=== PATIENT | male | born 1990 | race Caucasian/White ===

== ENCOUNTER 2017-11-15 12:44 | Outpatient (CLI) | payer BC ==
[2017-11-15 13:29] LABS: #Basophils 0.1 thou/uL (0.0-0.2); #Eosinphils 0.2 thou/uL (0.0-0.7); #Lymphocytes 2.1 thou/uL (1.20-3.40); #Monocytes 0.9 thou/uL (0.11-0.59); #Neutrophils 5.7 thou/uL (1.40-6.50); %Basophils 0.9 % (0.0-1.0); %Eosinophils 2.2 % (0.0-10.0); %Lymphocytes 23.3 % (21.0-51.0); %Monocytes 9.6 % (0.0-10.0); Hematocrit 47.2 % (42.0-52.0); Mean Platelet Volume 9.2 fL (7.4-10.4); Red Blood Cell (RBC) Count 5.39 mill/uL (4.70-6.10)
[2017-11-15 13:55] LABS: Anion Gap 9 mmol/L (10-20); BUN (Urea Nitrogen) 25 mg/dL (8.9-20.6); Calc. Creatinine Clearance 0 mL/min (70-130); Calcium 9.9 mg/dL (7.8-10.44); Carbon Dioxide 32 mmol/L (22-29); Chloride 102 mmol/L (98-107); Estimated GFR-MDRD 74
== END 2017-11-15 12:45 | disposition home or self-care (01) ==
LOC: LABBT 12:44
PROVIDERS: ATTEND Specialist
DX: Z01.812 Encounter for preprocedural laboratory examination (principal); K40.90 Unilateral inguinal hernia, without obstruction or gangrene, not specified as recurrent
CPT/HCPCS: 80048; 85025

== ENCOUNTER 2017-11-18 07:09 | Day surgery (SDC) | payer BC ==
--- NOTE | 2017-11-14 16:16 | HP ---
DATE OF : 1990 HISTORY OF PRESENT ILLNESS: Dwayne Moreno is a 27-year-old male patient, , has a right ingui nal hernia that is bothersome to him. Dr. Ibanez has referred him for repair. The patient has notic ed this for several months and it has been bothersome to him in the past as he works out lifting [employer]. He has recently completed a half marathon, it did not seem to bother him. The patient desires repair. Plan is to repair this using mesh. He understands the risks of infection, bleeding, reopera tion, and recurrence of hernia, chronic pain syndrome, etc. and consents. ALLERGIES: None. TOBACCO: None. ALCOHOL: None. MEDICATIONS: None. PAST MEDICAL AND SURGICAL HISTORY: [place] teeth extraction. PHYSICAL EXAMINATION: VITAL SIGNS: Weight 170 pounds, 69 inches, 131/67, 56, 98.4 degrees. HEENT: Unremarkable. LUNGS: Clear to auscultation. CARDIAC: Regular rate and rhythm without murmur or gallop. ABDOMEN: Soft, nontender. EXTREMITIES: Left great toe paronychia one-third of the nail bed. No purulent discharge. : Testicles normal. Left groin without hernia. Right inguinal hernia present on standing and Bri herbie enlarges. ASSESSMENT AND PLAN: 1. Right inguinal hernia. Plan mesh repair. Risks and benefits as outlined above discussed. He co nsents to the use of mesh. Questions answered. Plan outpatient repair. 2. Paronychia, left great toe. Plan oral antibiotic treatment and if this does not improve or certa inly if it worsens, he may need removal of half of his nail. This can be done under the same anesthe tic. Hopefully, antibiotics will be successful and this will not be necessary.
[2017-11-15 13:10] VITALS: BMI 23.6
[2017-11-18] MEDS ORDERED: CEFAZOLIN/Water 2 GM/20 ML SYRINGE ONE (07:43)
[2017-11-18] MEDS ORDERED: Ketorolac Tromethamine 30 MG/ML VIAL ONE (07:43)
[2017-11-18] MEDS ORDERED: Bupivacaine/Epinephrine 0.25% 30 ML VIAL ONE (08:02)
[2017-11-18] MEDS ORDERED: Lidocaine 2% w/Epinephrine 1:200K 20 ML VIAL ONE (08:02)
[2017-11-18] MEDS ORDERED: Fentanyl 250 MCG/5 ML VIAL ONE (08:19)
--- NOTE | 2017-11-18 09:53 | OP ---
DATE OF OPERATION: 11/18/2017 PREOPERATIVE DIAGNOSIS: Right inguinal hernia, indirect. POSTOPERATIVE DIAGNOSIS: Right inguinal hernia, indirect. PROCEDURE: PHS mesh repair of indirect right inguinal hernia. SURGEON: Dr. Terrence Guerin ANESTHESIA: General. Local 0.25% Marcaine with epinephrine, 30 mL, mixed was mixed with 1% Xylocain e with epinephrine, 30 mL. PROCEDURE IN DETAIL: The patient was taken to the operating room where under general anesthesia, abd omen was prepared with ChloraPrep, draped in routine fashion. Ioban was used. Local anesthetic infi ltrated into skin and subcutaneous tissue for around the operative site. Incision made in the right groin and carried down through the skin and subcutaneous tissue. External oblique incised in the dir ection of its fibers to the external ring. Cord structures dissected free and surrounded with a Penr ose drain. Ilioinguinal nerve was not identified and not seen. Cremasteric fibers taken down with t he cautery and hernia sac dissected free, opened under direct visualization, highly ligated with a pu rsestring suture of 0 Nurolon and highly excised to the underside of the PHS mesh, the hernia sac was secured with 0 Nurolon suture. Underlay portion of the mesh placed in the preperitoneal space. Onl ay portion placed in the floor of canal, placing the extended portion superiorly beneath the external oblique. A slit made in the mesh laterally, brought around the cord structures creating a synthetic internal ring securing the mesh laterally to Poupart's ligament with interrupted suture of 0 Nurolon . Mesh inferiorly secured to Elpidio's ligament with 0 Nurolon. External oblique closed with continu ous suture of 3-0 Monocryl, Camper's fascia with continuous suture of 3-0 Monocryl, skin with continu ous subcuticular suture of 4-0 Monocryl and local anesthetic infiltrated into the space of the above and below Camper's fascia and the inguinal canal. The patient tolerated the procedure well. DermaGl ue applied. The patient tolerated the procedure well.
[2017-11-18] MEDS ORDERED: Ondansetron HCl/PF 4 MG/2 ML Vial ONE (10:37)
[2017-11-18] MEDS ORDERED: Glycopyrrolate 0.2 MG/ML 5 ML SYRINGE ONE (10:37)
[2017-11-18] MEDS ORDERED: Propofol 200 MG/20 ML VIAL ONE (10:37)
[2017-11-18] MEDS ORDERED: Lidocaine 1% PF 5 ML VIAL ONE (10:37)
== END 2017-11-18 11:25 | disposition home or self-care (01) ==
LOC: SDC 07:09
PROVIDERS: ATTEND Specialist
PROC: 0YU50JZ Supplement Right Inguinal Region with Synthetic Substitute, Open Approach (ICD-10-PCS; principal; 2017-11-18)
DX: K40.90 Unilateral inguinal hernia, without obstruction or gangrene, not specified as recurrent (principal); Z79.2 Long term (current) use of antibiotics; Z98.818 Other dental procedure status
CPT/HCPCS: C1781; J0131; J1885; J2001; J2405; J2704; J3010